=== PATIENT | female | born 2000 ===

== ENCOUNTER 2023-08-05 11:43 | Emergency (ER) | payer SELFPAY ==
[2023-08-05] VITALS (7 sets, daily range): BP systolic 119–128; BP diastolic 75–90; PULSE 56–75; RESP 6–21; O2SAT 96–100
--- NOTE | 2023-08-05 11:32 | ED.GENADUL_ITS ---
Discharge Plan Disposition Patient Disposition: Against Medical Advice Condition: Serious Discharge Details Chief Complaint: Seizure Clinical Impression: Seizure Primary Care Provider: None,None ED Provider: Antonino Forte General Mode of arrival: EMS . Date/Time Provider Initiated Documentation: 08/05/23 11:52 . Information obtained by: EMS . History of Present Illness 22 year old F presents to the emergency department with the chief complaint of seizure like activity, described as moderate, Patient started experiencing this minute(s) (30) and it has been now resolved. No relieving factors improve symptom(s), No exacerbating factors reported . Related Data Allergies Allergy/AdvReac Type Severity Reaction Status Date / Time Penicillins AdvReac Unknown Other (See Verified 08/05/23 12:55 Comment) General Stated Complaint: Seizure GUADALUPE: 2 Review of Systems Unobtainable due to mental status Exam Const Orientation: alert HENMT Head: normal to inspection Ears: external ears normal General nose exam: external nose normal Mouth: moist mucous membranes Eyes General: appearance normal, both eyes and all related structures Neck Neck: normal visual inspection Resp Effort & Inspection: normal respiratory effort and able to speak in complete sentences Auscultation: clear to auscultation bilaterally Cardio Rate: regular rate Heart Sounds: no murmurs GI Palpation: soft Skin General skin exam: no rashes or lesions noted Neuro General: other (lethargic, withdraws to painful stimuli) Extrem General: normal to inspection Medical Decision Making 22-year-old female who per significant other does have a history of seizures, comes in after she had seizure-like activity. She apparently was at work and there was a flickering light which caused her to have a what is described as a tonic-clonic seizure lasting a few minutes and stopped on its own. By the time EMS got there and started evaluating her she had again another tonic-clonic seizure for which they gave 10 mg of IM Versed for which stopped the seizure. She is currently lethargic, does withdraw extremities to pain, groans when sternal rub was applied. He is protecting her airway and percent on room air. Signs of trauma to the head, clear lung sounds, soft abdomen. Given reported history from the significant other and seizure-like activity suspect this was a seizure. Will give a dose of Keppra, check CBC, CMP, hCG, and obtain CT of the head. Pt is sinus on the monitor and QTc is 400. Labs unremarkable, patient now alert and oriented x 4 ambulating without distress denies any pain, feels well. He is declining to stay for CT, she has decision-making capacity and is clinically sober. She understands the risks of leaving prior to CT including potentially becoming disabled and possible . She declines to be started on an antiepileptic and understands the risk of not being on 1. Leaving AGAINST MEDICAL ADVICE. She understands she can return at any time if she changes her mind and will follow-up with her primary care provider. She does not want to stay for written discharge instructions, I would verbally gave these instructions to her and she understood them. She understands she should not be driving or bathing by herself for up to a year or until her neurologist or primary care provider clears her Differential Diagnosis Differential Diagnosis: Seizure, electrolyte abnormality, eclampsia Lab Data Lab results reviewed: Yes I reviewed the patient's lab results. Quality:SDOH Health Related Social Needs: No Data to Display PFSH All Active Problems (Updated 08/05/23 @ 13:41 by Antonino Forte MD) Seizure (Acute) Social History Smoking/Tobacco Use Status: Unknown Smoking risk assessment performed?: Yes Substance use type: unknown Housing: apartment Additional Social history: [place], boyfriend of 5 months at bedside.
[2023-08-05] MEDS: Normal Saline 1,000 ML 1000 ML IV (11:57)
[2023-08-05 11:58] LABS: Abs Immature Grans 0.02 10^3/uL (0.0-0.06); Absolute Basophil Count 0.06 10^3/uL (0.0-0.2); Absolute Eosinophil Count 0.07 10^3/uL (0.0-0.7); Absolute Lymphocyte Count 1.74 10^3/uL (1.2-3.4); Absolute Monocyte Count 0.33 10^3/uL (0.1-0.8); Absolute Neutrophil Count 5.83 10^3/uL (1.2-6.7); Basophils % 0.7; Eosinophils % 0.9; HCT 33.4 % (36.0-46.0); HGB 10.8 g/dL (11.2-15.7); Immature Grans % 0.2; Lymphocytes % 21.6; MCH 31.5 pg (27.0-33.0); MCHC 32.3 % (32.0-36.0); MCV 97 fL (80-95); Monocytes % 4.1; Neutrophils % 72.5; Platelet Count 244 10^3/uL (130-400); RBC 3.43 10^6/uL (3.93-5.22); RDW 13.3 % (11.7-14.6); RDW-SD 47.5 fL; WBC 8.05 10^3/uL (4.4-10.8)
[2023-08-05 12:26] LABS: ALT 17 U/L (14-59); AST 19 U/L (15-37); Albumin 3.5 g/dL (3.4-5.0); Alkaline Phosphatase 46 U/L (46-116); Anion Gap 8.4 mmol/L (3-11); BUN 11 mg/dL (7-18); Bilirubin, Total 0.6 mg/dL (0.2-1.0); CO2 27.6 mmol/L (21.0-32.0); CREATININE 0.6 mg/dL (0.55-1.02); Calcium 8.3 mg/dL (8.5-10.1); Chloride 107 mmol/L (98-107); Glucose 80 mg/dL (74-106); Potassium 3.8 mmol/L (3.5-5.1); Sodium 143 mmol/L (136-145); Total Protein 6.4 g/dL (6.4-8.2)
[2023-08-05 12:27] LABS: ETHANOL BLOOD < 3.0 mg/dL (<10)
[2023-08-05 12:28] LABS: HCG Qual (Serum) Negative
--- NOTE | 2023-08-05 13:41 | NUR.NOTE ---
Nursing Note:Pt left AMA. See SQSS
[2023-08-05 14:08] LABS: Bilirubin Negative (Negative); Blood Negative (Negative); Clarity Sl Cloudy (Clear); Glucose Negative (Negative); Ketones Negative (Negative); Leukocyte Esterase Negative (Negative); Nitrite Negative (Negative); Specific Gravity 1.015 (1.005-1.025); Urobilinogen 0.2 mg/dL (Up to 0.2)
[2023-08-05 14:21] LABS: *AMPHETAMINES SCREEN URINE Negative (Negative); *BARBITURATES SCREEN URINE Negative (Negative); *BENZODIAZEPINES SCREEN URINE Positive (Negative); Cannabinoids THC Positive (Negative); Cocaine Screen,Urine Negative (Negative); METHADONE URINE SCREEN Negative (Negative); OPIATES URINE SCREEN Negative (Negative)
[2023-08-05 14:27] LABS: Tricyclic Antidepressants Negative (Negative)
== END 2023-08-05 13:24 | disposition left against medical advice (07) ==
LOC: ER 13:47
PROVIDERS: Emergency Provider Emergency Medicine
DX: G40.909 Epilepsy, unspecified, not intractable, without status epilepticus (principal); Z53.29 Procedure and treatment not carried out because of patient's decision for other reasons
CPT/HCPCS: 36415; 80053; 80307; 96361; 96365; 99283; 80320; 81003; 83735; 84703; 85025; J1953

== ENCOUNTER 2023-12-11 17:31 | Emergency (ER) | payer SELFPAY ==
[2023-12-11] VITALS (20 sets, daily range): BP systolic 90–109; BP diastolic 51–75; PULSE 61–95; RESP 15–36; TEMP 37.1; O2SAT 100
--- NOTE | 2023-12-11 17:30 | RT.EKG_ITS ---
APPROVED REPORT Exam: Resting ECG Reason for Exam: Posticle Patient Location: E HR:75 bpm ECG Measurements Heart Rate 75 AXIS MA 140 P 70 QRSd 97 QRS 51 QT 378 T 42 QTc 422 Conclusion Sinus rhythm...normal P axis, V-rate 60- [address] segment or T wave abnormalitites to suggest occlusive [place]
--- NOTE | 2023-12-11 17:45 | DI.CT_ITS ---
Exam(s) CT HEAD CERVICAL SPINE WO EXAM: CT HEAD CERVICAL SPINE WO CLINICAL HISTORY: unresponsive episode, possible seizure. TECHNIQUE: Imaging Protocol: Axial computed tomography images with coronal and sagittal reformatted images were created and reviewed COMPARISON: No exams were available for comparison FINDINGS: The examination is limited due to patient motion artifact. CT Head: Ventricles and Extra axial spaces: Normal in size and morphology for the patient's age. Hemorrhage: None. Cerebral parenchyma: Normal. Midline shift: None. Brainstem/Cerebellum: Normal. Calvarium: Normal. Visualized Paranasal sinuses/Mastoids: Clear. Soft Tissues: Unremarkable. CT Cervical Spine: Bones: No acute fracture or subluxation. There is straightening of the normal cervical lordosis which may be due to muscle spasm or patient positioning. Soft Tissues: Unremarkable. Lung Apices: Clear. IMPRESSION: 1. No acute intracranial process. 2. There is motion artifact on the cervical spine CT particularly at the C2-C3 region. If there is c ontinued clinical concern, a repeat cervical spine CT should be considered. 3. Within the limits of the examination, no acute fracture or subluxation is seen in the cervical spi ne. RADIATION DOSE DELIVERED: Total DLP DATA REPOSITORY: All CT scans at this facility are submitted to the National Radiology Data Registry (NRDR) Dose Index Registry (DIR) with the [employer] (ACR). RADIATION OPTIMIZATION: All CT scans at this facility use at least one of these dose optimization te chniques: automated exposure control; mA and/or kV adjustment per patient size (includes targeted exa ms where dose is matched to clinical indication); or iterative reconstruction.
--- NOTE | 2023-12-11 17:52 | ED.GENADUL_ITS ---
Discharge Plan Disposition Patient Disposition: Against Medical Advice Condition: Fair Discharge Details Clinical Impression: Seizure Primary Care Provider: Unknown,Unknown ED Provider: Toshia Figueroa Home Meds and New Rx's Prescriptions: New levetiracetam [Keppra] 500 mg tablet 500 mg PO BID Qty: 90 0RF Continued levothyroxine 50 mcg tablet 50 mcg PO DAILY Patient Comments: TAKE 1 TABLET BY MOUTH ONCE DAILY Discharge Instructions Instructions: Seizures, Adult ED Additional Instructions: Seizures are dangerous and can kill you or leave you disabled with brain damage. We would like you to be transferred to another hospital for EEG and MRI as recommedned by neurology but you have refused. DO NOT DRIVE, SWIM, OR ENGAGE IN ANY ACTIVITY WHERE LOSING CONSCIOUSNESS COULD RESULT IN YOUR INJURY OR OR THAT OF SOMEONE ELSE Take keppra 500mg twice a day until you are seen by neurology. Call your neurologist tomorrow to try to move up your appointment. Call your primary care doctor on Thursday to schedule an appointment for early this week to follow up on your visit here. Return to the emergency department for new or worsening symptoms, or if you change your mind. Discharge Data Discharge Date/Time-TO BE ENTERED AT DEPARTURE: 12/11/23 21:30 HPI General Mode of arrival: EMS . Date/Time Provider Initiated Documentation: 12/11/23 17:51 . Limitations to Documentation: altered mental status . Information obtained by: patient, family and EMS . HPI Narrative: 23yo F with hx of hypothyroid, possible seizure disorder (not formally diagnosed, not on medication) presenting for unresponsive episode. Initial history from EMS, pt able to respond to yes/no questions but is non-verbal on arrival. Per EMS patient was observed to lose consciousness while standing, fell to the ground, and had some abnormal movements. Initially unresponsive on their arrival with reassuring vitals signs, during transport has become alert and able to nod her head slightly yes & no in response to questions. Patient does not remember the event. Currently denies pain, numbness, headache, vision changes vertigo. Feels weak, no focal weakness, weak all over. No recent illness or fevers. [place] normal this morning. Otherwise in her usual state of health. Related Data Home Medications ?Medication ?Instructions ?Recorded ?Confirmed levetiracetam 500 mg tablet 500 mg PO BID #90 tabs 12/11/23 (Keppra) levothyroxine 50 mcg tablet 50 mcg PO DAILY 12/11/23 12/11/23 Previous Rx's ?Medication ?Instructions ?Recorded levetiracetam 500 mg tablet 500 mg PO BID #90 tabs 12/11/23 (Keppra) Allergies Allergy/AdvReac Type Severity Reaction Status Date / Time Penicillins AdvReac Unknown Other (See Verified 08/05/23 12:55 Comment) General Stated Complaint: AMS/LOC GUADALUPE: 2 Review of Systems Narrative: see HPI Exam Narrative Exam Narrative: General: Alert, well appearing, well nourished, in no acute distress. Head: Normocephalic, atraumatic Neck: Trachea midline, ?Neck supple. ENT: ?MMM.? No oropharygeal lesions or exudate. Cardiac: ?RRR, no murmurs appreciated Resp: No respiratory distress. CTAB. Abd: ?Soft, non-distended, nontender : ?No suprapubic tenderness. Extremities: ?No deformities.? No peripheral edema. Neuro: ? GCS 11 (E4 V1 M6).? PERRL.? EOMI.? Moves all 4 extremities. Sensation intact to light touch and symmetric multiple dermatomes including upper and lower extremities. 2/4 achilles & patellar reflexes, no clonus CRANIAL NERVES: II: Pupils equal and reactive, III, IV, : EOM intact, no gaze preference or deviation, no nystagmus. V: normal sensation in V1, V2, and V3 segments bilaterally VII: no asymmetry, no nasolabial fold flattening VIII: normal hearing to speech IX, X: normal palatal elevation, no uvular deviation XI: NT XII: midline tongue protrusion Course Vital Signs Vital signs: Vital Signs Temperature 37.1 C 12/11/23 17:32 Pulse 80 12/11/23 17:32 Respiratory Rate 30 H 12/11/23 17:32 Blood Pressure 109/54 L 12/11/23 17:32 Pulse Oximetry 100 12/11/23 17:32 Temperature 37.1 C 12/11/23 17:32 Pulse 80 12/11/23 17:32 Respiratory Rate 30 H 12/11/23 17:32 Blood Pressure 109/54 L 12/11/23 17:32 Pulse Oximetry 100 12/11/23 17:32 Comment nod yes to pain 12/11/23 17:32 Medical Decision Making 23yo F presenting with possible seizure. Hx of hypothyroid, possible seizure disorder (not formally diagnosed, not on medication). Initial history from EMS, pt able to respond to yes/no questions but is non-verbal on arrival. Per EMS patient was observed to lose consciousness while standing, fell to the ground, and had some abnormal movements. Initially unresponsive on their arrival with reassuring vitals signs, during transport has become alert and able to nod her head slightly yes & no in response to questions. Vital signs reassuring on arrival, GCS 11 (alert, eyes open, follows commands, but remains nonverbal). Moves all extremities but minimally, slight (millimeters) nod/shake of head in response to yes/no questions. Grossly non-focal neurologic exam and no abnormal movements on my evaluation. Given minimal history regarding fall itself, placed in c-collar as precaution. -EKG NSR, appropriate intervals, no ST segment or T wave abnormalities to suggest occlusive [place]. -Labs reviewed as below, CBC reassuring, CMP with hypocalcemia (oral replacement ordered), Mg borderline at 1.7, preg negative, TSH normal, troponin normal, UA not infected. UDC + for THC otherwise negative, -CT independently reviewed, no ICH, mass or displaced cervical fracture or dislocation on my view; agree with radiology read below. On reassessment she is alert, responsive, 5/5 strength all extremities and speaking in full sentences. GCS 15, A&O x 4. C spine clinically cleared. Teleneurology consulted and evaluated patient; feel her presentation is consistent with seizures and that she may be continuing to have abscence seizures during their evaluation. Advised keppra load, starting BID oral keppra, and urgent MRI/EEG. I discussed with neurology that we have no EEG/MRI capability here over the weekend and they advised transfer to a facility that can provide this. I discussed these recommendations with Ms. Queen and she states that she does not want to be transferred and would like to leave. She reports that she has a neurology appt scheduled for April. I reviewed with her my strong recommendation that she allow for transfer now especially as it seems she may still by having seizures here, and that seizures can cause serious disability and ; she again affirmed that she did not want to be transferred. She does state she is willing to stay to complete her initial keppra load. She has capacity, is able to verbalize understanding of my concerns, and is alert and oriented. Her boyfriend at the bedside states that she is acting like her usual self and is at her baseline. She is not presenting as post-ictal or encehpalopathic at this time. I have no indication to hold her against her will. Left against medical advice; given oral keppra for the weekend and prescription sent, advised to followup closely with her PCP and call neurology to see about moving up her appointment. Imaging Data Radiologic Study: Imaging: CT Scan Radiologist's impression: IMPRESSION: 1. No acute intracranial process. 2. There is motion artifact on the cervical spine CT particularly at the C2-C3 region. If there is continued clinical concern, a repeat cervical spine CT should be considered. 3. Within the limits of the examination, no acute fracture or subluxation is seen in the cervical spine. Lab Data Lab results reviewed: Yes I reviewed the patient's lab results. Labs: Laboratory Tests Range/Units 12/11/23 12/11/23 12/11/23 17:49 17:58 19:21 WBC (4.4-10.8) 10^3/uL 5.46 RBC (3.93-5.22) 10^6/uL 3.67 L Hgb (11.2-15.7) g/dL 11.5 Hct (36.0-46.0) % 34.1 L MCV (80-95) fL 93 MCH (27.0-33.0) pg 31.3 MCHC (32.0-36.0) % 33.7 RDW (11.7-14.6) % 12.0 Plt Count (130-400) 10^3/uL 227 MPV (8.0-11.0) fL 10.6 Immature Gran % % 0.2 Neutrophils % % 63.3 Lymphocytes % % 27.5 Monocytes % % 6.8 Eosinophils % % 1.3 Basophils % % 0.9 Nucleated RBC % (0.0-0.3) % 0.0 Absolute Neutrophils (1.2-6.7) 10^3/uL 3.46 Absolute Lymphocytes (1.2-3.4) 10^3/uL 1.50 Absolute Monocytes (0.1-0.8) 10^3/uL 0.37 Absolute Eosinophils (0.0-0.7) 10^3/uL 0.07 Absolute Basophils (0.0-0.2) 10^3/uL 0.05 VBG Lactate (0.6-1.4) mmol/L 1.4 Sodium (136-145) mmol/L 143 Potassium (3.5-5.1) mmol/L 3.5 Chloride (98-107) mmol/L 108 H Carbon Dioxide (21.0-32.0) mmol/L 26.4 Anion Gap (3-11) mmol/L 8.6 BUN (7-18) mg/dL 11 Creatinine (0.55-1.02) mg/dL 0.7 Est GFR (CKD-EPI 2020) (mL/min/1.73m2) 126.11 Glucose (74-106) mg/dL 119 H Calcium (8.5-10.1) mg/dL 7.5 L Magnesium (1.8-2.4) mg/dL 1.7 L Total Bilirubin (0.2-1.0) mg/dL 0.41 AST (15-37) U/L 15 ALT (14-59) U/L 16 Alkaline Phosphatase (46-116) U/L 43 L Creatine Kinase (26-192) U/L 73 Troponin I (< or =60) ng/L < 50 Total Protein (6.4-8.2) g/dL 6.1 L Albumin (3.4-5.0) g/dL 3.3 L TSH (0.36-3.74) uIU/mL 2.53 Beta HCG, Quant (1-3) mIU/mL < 1 L Urine Color (Yellow) Yellow Urine Clarity (Clear) Clear Urine pH (5-8) 7.0 Ur Specific [place] (1.005-1.025) 1.025 Urine Protein (Neg-Trace) mg/dL Negative Urine Ketones (Negative) mg/dL Negative Urine Blood (Negative) Negative Urine Nitrite (Negative) Negative Urine Bilirubin (Negative) Negative Urine Urobilinogen (Up to 0.2) mg/dL 0.2 Ur Leukocyte Esterase (Negative) Negative Urine Glucose (Negative) mg/dL Negative Urine Opiates Screen (Negative) Negative Urine Methadone Screen (Negative) Negative Ur Barbiturates Screen (Negative) Negative Ur Tricyclics Screen (Negative) Negative Ur Amphetamines Screen (Negative) Negative U Benzodiazepines Scrn (Negative) Negative Urine Cocaine Screen (Negative) Negative Ur THC Screen (Negative) Positive A Quality:SDOH Health Related Social Needs: No Data to Display PFSH All Active Problems (Updated 12/11/23 @ 20:58 by Toshia Figueroa MD) Seizure (Acute) Social History Smoking/Tobacco Use Status: Never Smoking risk assessment performed?: Yes Alcohol Intake: current Alcohol Intake frequency: a few times a month Drug use: Daily Substance use type: marijuana and unknown Housing: apartment Do you feel safe at home: Yes Do you feel safe in your relationship?: Yes
[2023-12-11 17:59] LABS: Lactate 1.4 mmol/L (0.6-1.4)
[2023-12-11 18:04] LABS: Abs Immature Grans 0.01 10^3/uL (0.0-0.06); Absolute Basophil Count 0.05 10^3/uL (0.0-0.2); Absolute Eosinophil Count 0.07 10^3/uL (0.0-0.7); Absolute Monocyte Count 0.37 10^3/uL (0.1-0.8); Absolute Neutrophil Count 3.46 10^3/uL (1.2-6.7); Basophils % 0.9 %; Eosinophils % 1.3 %; HCT 34.1 % (36.0-46.0); HGB 11.5 g/dL (11.2-15.7); Immature Grans % 0.2 %; Lymphocytes % 27.5 %; MCH 31.3 pg (27.0-33.0); MCHC 33.7 % (32.0-36.0); MCV 93 fL (80-95); MPV 10.6 fL (8.0-11.0); Monocytes % 6.8 %; Neutrophils % 63.3 %; Platelet Count 227 10^3/uL (130-400); RBC 3.67 10^6/uL (3.93-5.22); RDW-SD 41.3 fL; WBC 5.46 10^3/uL (4.4-10.8)
--- NOTE | 2023-12-11 18:07 | NUR.NOTE ---
Nursing Note: Boyfriend at bedside, he reports she is currently on crutches for sprained L ankle. SHe was crutcing' from the kitchen to the living room and she fell flat on her face with no warning. Became unresponsive, he called EMS. He advised she smoked marijuana today, no alcohol, no other substances. Nothing like this has ever happened before that he has witnessed
[2023-12-11 18:26] LABS: ALT 16 U/L (14-59); AST 15 U/L (15-37); Albumin 3.3 g/dL (3.4-5.0); Alkaline Phosphatase 43 U/L (46-116); Anion Gap 8.6 mmol/L (3-11); BUN 11 mg/dL (7-18); Bilirubin, Total 0.41 mg/dL (0.2-1.0); CO2 26.4 mmol/L (21.0-32.0); CREATININE 0.7 mg/dL (0.55-1.02); Calcium 7.5 mg/dL (8.5-10.1); Chloride 108 mmol/L (98-107); Creatine Kinase 73 U/L (26-192); Estimated GFR 126.11 (mL/min/1.73m2); Glucose 119 mg/dL (74-106); Magnesium 1.7 mg/dL (1.8-2.4); Potassium 3.5 mmol/L (3.5-5.1); Sodium 143 mmol/L (136-145); TSH (W/Ref FT4) 2.53 uIU/mL (0.36-3.74); Total Protein 6.1 g/dL (6.4-8.2); Troponin I < 50 ng/L (< or =60)
[2023-12-11 18:49] LABS: HCG Quant, Pregnancy < 1 mIU/mL (1-3)
[2023-12-11] MEDS: MAGNESIUM SULFATE 1 GM/100 ML BAG IVINF (19:31)
[2023-12-11 19:42] LABS: Bilirubin Negative (Negative); Blood Negative (Negative); Clarity Clear (Clear); Glucose Negative (Negative); Ketones Negative (Negative); Leukocyte Esterase Negative (Negative); Nitrite Negative (Negative); Specific Gravity 1.025 (1.005-1.025); Urobilinogen 0.2 mg/dL (Up to 0.2)
[2023-12-11 20:01] LABS: *AMPHETAMINES SCREEN URINE Negative (Negative); *BARBITURATES SCREEN URINE Negative (Negative); *BENZODIAZEPINES SCREEN URINE Negative (Negative); Cannabinoids THC Positive (Negative); Cocaine Screen,Urine Negative (Negative); METHADONE URINE SCREEN Negative (Negative); OPIATES URINE SCREEN Negative (Negative)
[2023-12-11 20:04] LABS: Tricyclic Antidepressants Negative (Negative)
--- NOTE | 2023-12-12 08:15 | NUR.NOTE ---
Patient called stating that she was here last night for seizure and that we wanted to transfer her to [facility]. She refused to go and left AMA. She called asking if she could come back to the ED. I told her that she could return at any time. There was s moment of silence, I asked if there was something else that I could help her with and she stated no. I again told her that she could come back and she stated that she understood. Nursing Note:
--- NOTE | 2023-12-12 17:20 | NUR.NOTE ---
Patient called asking where her presription was. In the chart it went to [facility]. Pt asked to have it sent to [facility], Dr Figueroa will resend the RX to that location. Nursing Note:
== END 2023-12-11 21:30 | disposition left against medical advice (07) ==
LOC: ER 21:31
PROVIDERS: Emergency Provider Student in an Organized Health Care Education/Training Program
DX: G40.909 Epilepsy, unspecified, not intractable, without status epilepticus (principal); E03.9 Hypothyroidism, unspecified; Z53.29 Procedure and treatment not carried out because of patient's decision for other reasons
CPT/HCPCS: 80053; 80307; 81025; 82550; 93005; 96365; 96375; 99285; 70450; 72125; 81003; 83605; 83735; 84443; 84484; 84702; 85025; 93010; 99284; J1953; J3475

== ENCOUNTER 2024-01-19 16:40 | Outpatient (CLI) | payer SELFPAY ==
[2024-01-19 18:07] LABS: TSH (W/Ref FT4) 4.24 uIU/mL (0.36-3.74)
[2024-01-19 18:08] LABS: HCG Quant, Pregnancy 7742 mIU/mL (1-3)
[2024-01-19 18:24] LABS: FREE T4 0.83 ng/dL (0.76-1.46)
== END 2024-01-19 16:41 | disposition home or self-care (01) ==
LOC: LBO 16:41
PROVIDERS: Visit Provider Advanced Practice Midwife
DX: Z34.90 Encounter for supervision of normal pregnancy, unspecified, unspecified trimester (principal); E03.9 Hypothyroidism, unspecified; N92.6 Irregular menstruation, unspecified; R87.612 Low grade squamous intraepithelial lesion on cytologic smear of cervix (LGSIL)
CPT/HCPCS: 36415; 86850; 86900; 86901; 84439; 84443; 84702

== ENCOUNTER 2024-12-24 07:59 | Emergency (ER) | payer MEDICAID, SELFPAY ==
[2024-12-24 08:03] VITALS: BP 104/53; PULSE 86; RESP 16; TEMP 36.7; O2SAT 99
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
== END 2024-12-24 08:37 | disposition home or self-care (01) ==
LOC: ER 08:26
PROVIDERS: Emergency Provider General Practice
DX: Z76.0 Encounter for issue of repeat prescription (principal)
CPT/HCPCS: 99283 ×2

== ENCOUNTER 2025-01-01 22:59 | Emergency (ER) | payer MEDICAID, SELFPAY ==
[2025-01-01 23:00] VITALS: BP 113/63; PULSE 60; RESP 16; TEMP 36.8; O2SAT 99
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
[2025-01-01 23:32] LABS: Glucose Negative (Negative)
[2025-01-01 23:36] LABS: C & S Indicated? No; RBC Negative HPF (0-2)
[2025-01-02 00:05] LABS: HCG Quant, Pregnancy < 1 mIU/mL (1-3)
[2025-01-02] MEDS: Fluconazole 150 MG TAB PO (00:30)
--- NOTE | 2025-01-02 08:21 | NUR.NOTE ---
Nursing Note: Received call from patient about questions regarding her results last night. She was wondering why her lab results were not on her discharge paperwork and why she's having positive tests at home and not here. She thinks she is and our results were wrong. Patient told to call her PCP and have labs redrawn in a few weeks to be sure and follow up with either PCP or [employer] regarding her symptoms and missed periods/positive test at home and negative lab results
--- NOTE | 2025-01-02 10:36 | NUR.NOTE ---
[id number] lab called stating that the wrong swab was obtained for the GC/chlam order. This order will be cancelled. Dr. Gibson will be notified by email. Nursing Note:
== END 2025-01-02 01:00 | disposition home or self-care (01) ==
PROVIDERS: Emergency Provider General Practice
DX: N89.8 Other specified noninflammatory disorders of vagina (principal)
CPT/HCPCS: 99283; 99282; 81025; 87491; 87591; 81003; 81015; 84702; 87480; 87510; 87660

== ENCOUNTER 2025-03-24 09:49 | Outpatient (CLI) | payer MEDICAID, SELFPAY ==
[2025-03-24 10:39] LABS: HCG Quant, Pregnancy 4 mIU/mL (1.5-4.2)
== END 2025-03-24 09:50 | disposition home or self-care (01) ==
LOC: LBO 09:49
PROVIDERS: Visit Provider Obstetrics & Gynecology
DX: O26.859 Spotting complicating pregnancy, unspecified trimester (principal)
CPT/HCPCS: 36415; 84702